=== PATIENT | male | born 1985 | race Caucasian/White ===

== ENCOUNTER → 2020-08-01 10:25 | Outpatient (BNVA) | payer BC, SELFPAY | PROVIDERS: PCP Family Medicine; Visit Provider Nurse Practitioner Family | DX: M25.511 Pain in right shoulder (principal) | CPT/HCPCS: 73030 ==

== ENCOUNTER → 2021-07-02 09:16 | Outpatient (BNVA) | payer BC, SELFPAY | PROVIDERS: PCP Family Medicine; Visit Provider Nurse Practitioner Family | DX: R52 Pain, unspecified (principal); R53.83 Other fatigue | CPT/HCPCS: 80053; 85025 ==